=== PATIENT | female | born 1960 | race Caucasian/White ===

== ENCOUNTER 2019-02-21 11:16 | Inpatient (IN) | payer OTHER ==
[~2019-02-21] VITALS: Ht 167.6 cm; Wt 80.7 kg
[2019-03-01] MEDS ORDERED: RAMIPRIL2.5 MG PO (13:01)
[2019-03-01] MEDS ORDERED: LIPITOR20 MG PO (13:01)
[2019-03-01] MEDS ORDERED: FORTAMET500 MG PO (13:02)
== END 2019-03-10 18:44 | disposition home or self-care (01) | DRG 331 ==
LOC: SURG 03-08 06:11 → O/R 03-08 06:11 → SURH 03-08 07:45 → SURG 03-08 14:15
PROVIDERS: ADMIT Colon & Rectal Surgery
PROC: 07TB4ZZ Resection of Mesenteric Lymphatic, Percutaneous Endoscopic Approach (ICD-10-PCS; 2019-03-08)
PROC: 0DTK4ZZ Resection of Ascending Colon, Percutaneous Endoscopic Approach (ICD-10-PCS; principal; 2019-03-08 10:15)
DX: C18.2 Malignant neoplasm of ascending colon (principal); R59.0 Localized enlarged lymph nodes; I10 Essential (primary) hypertension; E11.9 Type 2 diabetes mellitus without complications; E78.00 Pure hypercholesterolemia, unspecified

== ENCOUNTER 2020-08-31 06:00 | Day surgery (SDC) | payer OTHER ==
[~2020-08-31 06:00] MED LIST: FORTAMET500 MG PO; LIPITOR20 MG PO; RAMIPRIL2.5 MG PO
== END 2020-08-31 11:20 | disposition home or self-care (01) ==
LOC: AMB-ENDOS 06:00
PROVIDERS: ATTEND Colon & Rectal Surgery
DX: K62.89 Other specified diseases of anus and rectum (principal); K64.2 Third degree hemorrhoids; Z20.828 Contact with and (suspected) exposure to other viral communicable diseases

== ENCOUNTER → 2021-09-24 08:00 | Outpatient (CLI) | payer OTHER ==
[~2021-09-24 08:00] MED LIST changes: +HYDROCHLOROTHIA25 MG; +PANTOPRAZOLE SO40 MG; +TIMOLOL MALEATE5 M3
== END | disposition home or self-care (01) ==
LOC: LAB 08:00 → SURH 09-26 07:00 → EDSTATUS 09-26 12:15
PROVIDERS: ATTEND Specialist
DX: R19.00 Intra-abdominal and pelvic swelling, mass and lump, unspecified site (principal); I10 Essential (primary) hypertension

== ENCOUNTER 2021-11-12 06:55 | Inpatient (IN) | payer OTHER ==
[~2021-11-12] VITALS: Ht 167.6 cm; Wt 74.8 kg
== END 2021-11-16 14:28 | disposition home or self-care (01) | DRG 736 ==
LOC: OB/GYN 06:55
PROVIDERS: ADMIT Specialist; ATTEND Specialist
PROC: 0UT90ZZ Resection of Uterus, Open Approach (ICD-10-PCS; principal; 2021-11-12)
PROC: 0UT20ZZ Resection of Bilateral Ovaries, Open Approach (ICD-10-PCS; 2021-11-12)
PROC: 0UT70ZZ Resection of Bilateral Fallopian Tubes, Open Approach (ICD-10-PCS; 2021-11-12)
PROC: 07BC0ZZ Excision of Pelvis Lymphatic, Open Approach (ICD-10-PCS; 2021-11-12)
PROC: 0DBU0ZZ Excision of Omentum, Open Approach (ICD-10-PCS; 2021-11-12)
PROC: 0DBW0ZX Excision of Peritoneum, Open Approach, Diagnostic (ICD-10-PCS; 2021-11-12)
DX: C56.3 Malignant neoplasm of bilateral ovaries (principal); N73.3 Female acute pelvic peritonitis; N72 Inflammatory disease of cervix uteri; N80.0 Endometriosis of uterus; D36.0 Benign neoplasm of lymph nodes; D20.1 Benign neoplasm of soft tissue of peritoneum; N83.8 Other noninflammatory disorders of ovary, fallopian tube and broad ligament